=== PATIENT | female | born 1960 | race Caucasian/White ===

== ENCOUNTER 2023-05-10 11:45 | Day surgery (SDC) | payer OTHER ==
[~2023-05-10] VITALS: Ht 147.3 cm; Wt 63.5 kg
[~2023-05-10 11:45] MED LIST: LIDOCAINE 2%, 20 ML MDV ONE; NORMAL SALINE 10 ML VIAL ONE; iopamidoL 50 ML VIAL IV ONE; methylPREDNISolone ACETATE 40 MG/ML ONE
[2023-05-10] MEDS ORDERED: DIPHENHYDRAMINE INJ 50 MG/ML VIAL ONE (12:47)
[2023-05-10] MEDS: fentaNYL CITRATE/PF 100 MCG/2 ML AMP ONE (14:42)
[2023-05-10] MEDS: MIDAZOLAM HCL 5 MG/5 ML VIAL ONE (14:43)
[2023-05-10 15:54] VITALS: O2SAT 96
[2023-05-10 16:11] VITALS: BP_SYST 109; PULSE 63; RESP 14; TEMP 97.6
== END 2023-05-10 15:45 | disposition home or self-care (01) ==
LOC: SDS 11:45 → SMU 11:46 → SDS 15:45
PROVIDERS: ATTEND Internal Medicine
DX: M51.16 Intervertebral disc disorders with radiculopathy, lumbar region (principal); M51.9 Unspecified thoracic, thoracolumbar and lumbosacral intervertebral disc disorder; Z98.51 Tubal ligation status; Z98.890 Other specified postprocedural states; Z79.899 Other long term (current) drug therapy
CPT/HCPCS: 62323; J1030; J2250; J3010; Q9967; 76000; J1200; J2001